=== PATIENT | male | born 1965 | race Caucasian/White ===

== ENCOUNTER 2018-12-07 05:54 | Day surgery (SDC) | payer OTHER, BC ==
[2018-12-07] MEDS ORDERED: Clindamycin in 0.9 % Sod Chlor 900 MG/50 ML BAG IV ONE (06:00)
[2018-12-07] MEDS ORDERED: Sodium Chloride 0.9% 10 ML Syringe FLUSH PRN (06:00)
[2018-12-07] MEDS ORDERED: Lactated Ringers 1,000 ML IV SCH (06:00)
[2018-12-07] MEDS ORDERED: Bupivacaine 0.5%/EPINEPHrine 1:200,000 50 ML MDV ONE (08:50)
[2018-12-07] MEDS ORDERED: Ondansetron 4 MG/2 ML SDV IVPUSH ONE (10:00)
[2018-12-07] MEDS ORDERED: Ropivacaine 0.5% 5 MG/ML 30 ML SDV INJECT ONE (10:00)
[2018-12-07] MEDS ORDERED: Midazolam 1 MG/ML 2 ML SDV IV ONE (10:00)
[2018-12-07] MEDS ORDERED: Propofol 200 MG/20 ML SDV IV ONE (10:00)
[2018-12-07] MEDS ORDERED: Succinylcholine 200 MG/10 ML MDV IV ONE (10:00)
[2018-12-07] MEDS ORDERED: Dexamethasone 4 MG/ML 5 ML MDV IVPUSH ONE (10:00)
[2018-12-07] MEDS ORDERED: ePHEDrine 50 MG/ML SDV IV ONE (10:00)
[2018-12-07] MEDS ORDERED: Rocuronium 100 MG/10 ML MDV IV ONE (10:00)
[2018-12-07] MEDS ORDERED: Lidocaine 2% 100 MG/5 ML Syringe IVPUSH ONE (10:00)
[2018-12-07] MEDS ORDERED: Glycopyrrolate 0.2 MG/ML 5 ML MDV IV ONE (10:00)
[2018-12-07] MEDS ORDERED: Neostigmine Methylsulfate 10 MG/10 ML MDV IVPUSH ONE (10:00)
[2018-12-07] MEDS ORDERED: Phenylephrine 1% 10 MG/ML SDV IV ONE (10:00)
[2018-12-07] MEDS ORDERED: HYDROmorphone 2 MG/ML SDV IV ONE (10:00)
[2018-12-07] MEDS ORDERED: Ketorolac 30 MG/ML SDV IVPUSH ONE ×2 (10:00→10:45)
[2018-12-07] MEDS ORDERED: fentaNYL 100 MCG/2 ML SDV IV ONE (10:00)
[2018-12-07] MEDS ORDERED: Acetaminophen/oxyCODONE 325-5 MG Tab PO ONE (10:44)
--- NOTE | 2018-12-07 15:25 | OR ---
DATE OF OPERATION: 12/07/2018 SURGEON: Moses Raymond DO PREOPERATIVE DIAGNOSES: 1. Right shoulder recurrent rotator cuff repair. 2. Shoulder impingement. 3. Acromioclavicular arthritis. POSTOPERATIVE DIAGNOSES: 1. Right shoulder recurrent rotator cuff repair. 2. Shoulder impingement. 3. Acromioclavicular arthritis. PROCEDURE: 1. Mini open rotator cuff repair of recurrent tear. 2. Right shoulder arthroscopy with subacromial decompression. 3. Distal clavicle resection. ANESTHESIA: Interscalene block, right shoulder as well as general endotracheal intubation. FLUIDS: Lactated Ringer's solution. ESTIMATED BLOOD LOSS: 25 mL. COMPLICATIONS: None. SPECIMEN: None. DISCHARGE DISPOSITION: Stable to PACU. HISTORY AND INDICATIONS FOR THE PROCEDURE: The patient was seen preoperatively by myself and the anesthesia staff. The patient was seen preoperatively in the clinic. I had been following him since his last rotator cuff repair in February. He did progress to a point and then was having continued pain. We did treat him many times nonoperatively with injections and physical therapy. We then repeated the MRI, which did show recurrent tear. Risks and benefits of the procedure explained to the patient. Informed consent was obtained. DETAILS OF PROCEDURE: The patient was seen preoperatively by myself and the anesthesia staff in the preoperative holding area. The operative site was marked and he was brought to the operative suite by anesthesia staff where an interscalene block was performed plus general endotracheal intubation. He was placed on the operating room table in a beach chair position. All extremities were found to be well padded. The neck was slightly flexed. The right upper extremity was then prepped and draped in a sterile manner. Time-out was called identifying the correct patient, correct procedure, the correct site, and the antibiotics had been within appropriate period of time. The posterior portal was first made to enter the joint. Arthroscope was then entered the joint. No changes were early seen inside the joint as there was a little bit of fraying of the labrum, but not as severe as the last time. He still had some glenohumeral arthritis present. The previous biceps tenodesis had been performed. I had used an ablation unit to ablate some of the frayed areas. I did enter the anterior portal after placing a spinal needle and a trocar. I then removed my instruments and then used a trocar to enter the subacromial space. I then used a lateral portal to enter with a shaver and ablation unit to perform a bursectomy. I felt that there was still some enough remaining bone of the acromion that I did perform another subacromial decompression and because the patient has had previous acromioclavicular pain and the clavicle itself did have inferior spurring, I did perform a distal clavicle resection. I ablated some small areas of bleeding as well. I then removed my instruments from the subacromial space and then focussed on my mini open rotator cuff repair. I prepped the area again and then closed my portals with david. I then used the same saber lateral incision distal to the acromion that I had gone through before. Then, going through the medial and anterior raphe, I was able to identify the bursa and removed some of the bursa. I did identify where the tendon was present. To the supraspinatus what appeared to have happened was that the tendon had retracted proximal to its insertion. With the previous anchors, there was still rotator cuff material around those anchors. I was able to feel the anterior portion of the supraspinatus and so I then placed 2 anchors with 4 strands each and then ran this to the rotator cuff. I then placed 2 lateral row anchors and then using a mikaela-cross method, tightened these down and then tamped the anchors rest of the way down. This provided excellent fixation and then I was very happy with the result. I then irrigated this with saline as well as Betadine infused irrigation and then closed the anterior medial raphe of the deltoid in a watertight manner with #1 Stratafix, followed by subcutaneous closure with #1 Stratafix, followed by skin david, followed by Betadine-soaked Adaptic and Medipore tape. The patient was then allowed to awaken from general anesthesia and taken to the PACU in stable condition. /[id number]
[2018-12-08 08:50] VITALS: BP 115/71
== END 2018-12-07 12:35 | disposition home or self-care (01) ==
LOC: FB.SDS 05:54
PROVIDERS: ATTEND Orthopaedic Surgery
DX: M75.101 Unspecified rotator cuff tear or rupture of right shoulder, not specified as traumatic (principal); M25.811 Other specified joint disorders, right shoulder; M19.011 Primary osteoarthritis, right shoulder; I10 Essential (primary) hypertension; J43.9 Emphysema, unspecified; F17.200 Nicotine dependence, unspecified, uncomplicated; E66.9 Obesity, unspecified; Z68.35 Body mass index [BMI] 35.0-35.9, adult; E78.00 Pure hypercholesterolemia, unspecified; F41.9 Anxiety disorder, unspecified
CPT/HCPCS: 64415-QZ; A9270-GY; J0330; J1100; J1170; J1885; J2001; J2250; J2370; J2405; J2704; J2710; J2795; J3010; J3490; J7120